=== PATIENT | male | born 1985 | race Caucasian/White ===

== ENCOUNTER 2021-02-26 13:44 | Emergency (ER) | payer SELFPAY ==
[~2021-02-26] VITALS: Ht 175.3 cm; Wt 74.8 kg
[2021-02-26 13:45] VITALS: BP 122/77
--- NOTE | 2021-02-26 13:49 | NUR ---
PT TO AWAIT IN LOBBY
--- NOTE | 2021-02-26 14:34 | NUR ---
PT TAKEN TO [facility]
--- NOTE | 2021-02-26 14:58 | NUR ---
DR RIOS EXAMINING PT
[2021-02-26] MEDS ORDERED: OLANZapine 5 MG ODT SL ONE (15:05)
--- NOTE | 2021-02-26 15:29 | NUR ---
35 Y/O MALE BIBA C/O MENTAL HEALTH ISSUES. PER EMS WAS RECENTLY DISCHARGED FROM [facility] ON A HOLD. SEEKING MEDICAL HELP FOR UNDIAGNOSED MENTAL HEALTH ISSUES. STATES 810 NECK PAIN. TRANSIENT. MEDHX: "MENTAL HEALTH ISSUES" NKA
--- NOTE | 2021-02-26 15:32 | NUR ---
PT CURRENTLY REFUSING MEDICATION. ER MD MADE AWARE
[2021-02-26] MEDS ORDERED: OLAN5TAB1 PO (15:36)
[2021-02-26 15:52] VITALS: BP 122/77
--- NOTE | 2021-02-26 15:52 | NUR ---
Patient discharged with v/s stable. Written and verbal after care instructions given and explained. Patient alert, oriented and verbalized understanding of instructions. Ambulatory with steady gait. All questions addressed prior to discharge. ID band removed. Homeless Resource Packet and Homeless Meal packet provided. Patient advised to follow up with PMD. Rx of ZYPREXA given. Patient educated on indication of medication including possible reaction and side effects. Opportunity to ask questions provided and answered.
== END 2021-02-26 15:52 | disposition home or self-care (01) ==
LOC: MED 13:44
DX: F31.9 Bipolar disorder, unspecified (principal); F20.9 Schizophrenia, unspecified; Z79.899 Other long term (current) drug therapy; Z59.00 Homelessness unspecified
CPT/HCPCS: 99283